=== PATIENT | male | born 1960 | race American Indian/Alaskan Native ===

== ENCOUNTER 2020-11-20 21:14 | Emergency (ER) | payer SELFPAY ==
--- NOTE | 2020-11-20 23:02 | Emergency Department Report ---
ED Shortness of Breath HPI - General Chief Complaint: Dyspnea/Respdistress Stated Complaint: SHORTNESS OF BREATH AND RIGHT SIDE NUMBNESS Time Seen by Provider: 11/20/20 22:57 Source: patient Mode of arrival: Ambulatory Limitations: No Limitations - History of Present Illness Initial Comments: Patient is a 60-year-old male who presents emergency room complaints of shortness of breath and right arm pain. Patient states his arm. Started approximately 4 days ago. Patient states the pain is worsening. Patient states the pain is better with rest and worse with movement and palpation. Patient states his shortness of breath has been going on for 6 months. Patient states that shortness of breath becoming more frequent and worsening. Patient states shortness of breath better with rest and worse with exertion. Patient denies recent travel. Patient denies recent international travel. Patient denies exposure to the novel coronavirus. Patient denies sick contacts. Patient denies fever and chills. Patient denies cough. Patient denies diarr hea. Patient denies coming in contact with anybody with symptoms of the novel coronavirus. Patient states he is not vaccinated gets COVID-19. Patient denies past medical history. MD Complaint: shortness of breath -: Gradual, month(s) Severity: mild Consistency: constant Improves With: rest Worsens With: exertion Treatments Prior to Arrival: none - Related Data Home Oxygen Therapy: No Allergies Allergy/AdvReac Type Severity Reaction Status Date / Time No Known Allergies Allergy Verified 11/20/20 21:22 ED Review of Systems ROS: Stated complaint: SHORTNESS OF BREATH AND RIGHT SIDE NUMBNESS Other details as noted in HPI Constitutional: denies: chills, fever Eyes: denies: eye pain, eye discharge, vision change ENT: denies: ear pain, throat pain Respiratory: see HPI, shortness of breath. denies: cough, wheezing Cardiovascular: denies: chest pain, palpitations Endocrine: no symptoms reported Gastrointestinal: denies: abdominal pain, nausea, diarrhea Genitourinary: denies: urgency, dysuria Musculoskeletal: denies: back pain, joint swelling, arthralgia Skin: denies: rash, lesions Neurological: denies: headache, weakness, paresthesias Psychiatric: denies: anxiety, depression Hematological/Lymphatic: denies: easy bleeding, easy bruising ED Past Medical Hx - Past Medical History Previous Medical History?: No - Surgical History Past Surgical History?: No - Family History Family history: no significant - Social History Smoking Status: Never Smoker Substance Use Type: None ED Physical Exam - General Limitations: No Limitations General appearance: alert, in no apparent distress - Head Head exam: Present: atraumatic, normocephalic - Eye Eye exam: Present: normal appearance - ENT ENT exam: Present: mucous membranes moist - Neck Neck exam: Present: normal inspection - Respiratory Respiratory exam: Present: normal lung sounds bilaterally. Absent: respiratory distress, wheezes, rales, rhonchi, stridor, chest wall tenderness, decreased breath sounds - Cardiovascular Cardiovascular Exam: Present: regular rate, normal rhythm. Absent: systolic murmur, diastolic murmur, rubs, gallop - GI/Abdominal GI/Abdominal exam: Present: soft, normal bowel sounds. Absent: distended, tenderness, guarding - Rectal Rectal exam: Present: deferred - Extremities Exam Extremities exam: Present: normal inspection - Back Exam Back exam: Present: normal inspection - Neurological Exam Neurological exam: Present: alert, oriented X3 - Psychiatric Psychiatric exam: Present: normal affect, normal mood - Skin Skin exam: Present: warm, dry, intact, normal color. Absent: rash ED Course Vital Signs 11/20/20 11/20/20 11/20/20 21:19 22:00 23:14 Temperature 99.5 F 98.2 F Pulse Rate 104 H 58 L Respiratory 18 18 Rate Blood Pressure 165/110 Blood Pressure 164/112 [Right] O2 Sat by Pulse 99 98 94 Oximetry 11/20/20 23:27 Temperature 98.0 F Pulse Rate 52 L Respiratory 18 Rate Blood Pressure Blood Pressure 145/87 [Right] O2 Sat by Pulse 98 Oximetry - Reevaluation(s) Reevaluation #1: I discussed all results and clinical findings with patient. I discussed plan of care with patient. Patient agrees with plan of care. Patient is stable for discharge. Patient will be discharged home. Patient given discharge instructions. Patient voiced understanding of discharge instructions. 11/21/20 00:44 ED Medical Decision Making - Lab Data Result diagrams: 11/20/20 23:19 11/20/20 23:19 - EKG Data -: EKG Interpreted by Me EKG shows normal: sinus rhythm, axis, intervals, QRS complexes, ST-T waves Rate: normal - Radiology Data Radiology results: report reviewed, image reviewed interpreted by me: Chest x-ray: No pneumonia, no pneumothorax, no foreign body, no osseous findings, no acute findings Fluoro Time In Minutes: CHEST 2 VIEWS INDICATION / CLINICAL INFORMATION: sob. COMPARISON: None available. FINDINGS: SUPPORT DEVICES: None. HEART / MEDIASTINUM: Cardiomegaly LUNGS / PLEURA: No significant pulmonary or pleural abnormality. No pneumothorax. ADDITIONAL FINDINGS: No significant additional findings. IMPRESSION: 1. Cardiomegaly without CHF - Medical Decision Making Patient is a 60-year-old male who presents emergency room for right arm pain and shortness of breath. Patient short of breath but not for many months. Patient's arm pain going on for 3 days. Patient on pain is consistent with a right arm sprain. Patient had a chest x-ray done and was negative for acute findings. Patient had labs done which were essentially unremarkable. Patient has a history of hypertension and lately controlled by his primary care. Patient is stable for discharge. Patient not require further emergency medical services. Patient not require inpatient service. Patient is stable for discharge. Patient discharged home I discussed all results and clinical findings with patient. I discussed plan of care with patient. Patient agrees with plan of care. Patient is stable for discharge. Patient will be discharged home. Patient given discharge instructions. Patient voiced understanding of discharge instructions. - Differential Diagnosis Shortness of breath, arm sprain, hypertension, CHF, Critical care attestation.: If time is entered above; I have spent that time in minutes in the direct care of this critically ill patient, excluding procedure time. ED Disposition Clinical Impression: Shortness of breath, Right arm pain, Cardiomegaly Hypertension Qualifiers: Hypertension type: primary hypertension Qualified Code(s): I10 - Essential (primary) hypertension Sprain of right upper arm Qualifiers: Encounter type: initial encounter Qualified Code(s): S53.401A - Unspecified sprain of right elbow, initial encounter Disposition: HOME / SELF CARE / HOMELESS Is pt being admited?: No Does the pt Need Aspirin: No Condition: Stable Instructions: Shortness of Breath, Adult, [id number], Elbow Sprain, Hypertension, Adult, [id number], Preventing Hypertension, Managing Your Hypertension, Hypertension, Adult, Hypertension (ED) Additional Instructions: Patient to follow-up with primary care in 2 to 3 days. Patient to follow-up with cardiology and orthopedist in 2 to 3 days. Patient to rest. Patient to increase water. Patient to avoid strenuous exercise or heavy lifting until cleared by cardiology and orthopedist. Patient to take Tylenol as needed for pain. Patient to monitor blood pressure at home. Patient to keep a blood pressure log. Patient to call blood pressure log to follow-up appointments. Patient to return to the ER if condition worsens, changes or new symptoms arise. Patient taking aspirin 81 mg daily. Referrals: CONRADO BACA MD [Staff Physician] - 2-3 Days TELLO BROWN MD [Staff Physician] - 2-3 Days COLE GUILLEN MD [Staff Physician] - 2-3 Days Time of Disposition: 00:48
[2020-11-20 23:28] VITALS: BP 145/87
--- NOTE | 2020-11-20 23:33 | XRay Report ---
CHEST 2 VIEWS INDICATION / CLINICAL INFORMATION: sob. COMPARISON: None available. FINDINGS: SUPPORT DEVICES: None. HEART / MEDIASTINUM: Cardiomegaly LUNGS / PLEURA: No significant pulmonary or pleural abnormality. No pneumothorax. ADDITIONAL FINDINGS: No significant additional findings. IMPRESSION: 1. Cardiomegaly without CHF Signer Name: Jimmy Abdi MD Signed: 11/20/2020 11:29 PM Workstation Name: [id number]
[2020-11-20 23:48] LABS: Hematocrit 40.7 % (35.5-45.6); Hemoglobin 13.5 gm/dl (11.8-15.2); Mean Corpuscular HGB Conc 33 % (32-34); Mean Corpuscular Volume 90 fl (84-94); Platelet Count 248 K/mm3 (140-440); Red Blood Count 4.53 M/mm3 (3.65-5.03); Red Cell Distribution Width 13.4 % (13.2-15.2)
[2020-11-21 00:06] LABS: Alanine Aminotransferase 27 units/L (7-56); Albumin 4.8 g/dL (3.9-5); BUN/Creatinine Ratio 12; Blood Urea Nitrogen 18 mg/dL (9-20); Calcium 9.7 mg/dL (8.4-10.2); Hemolysis Index 4
[2020-11-21 01:49] LABS: Total Cells Counted 100
[2020-11-21 01:50] LABS: Band Neutrophils # (Manual) 0.1 K/mm3; Platelet Estimate Consistent w Auto; RBC Morphology Normal
--- NOTE | 2020-11-27 14:32 | Electrocardiograph Report ---
[facility] Test Date: 2020-11-20 Test Time: 22:12:02 Pat Name: ANNA OSEI Department: Room: Gender: M Business Analysis Consultant: : 1960 Requested By: FARNAZ DAWSON III Order Number: [id number] Reading MD: Mendy Nettles Measurements Intervals [place] Rate: 50 P: 63 GA: 177 QRS: 65 QRSD: 90 T: 43 QT: 434 QTc: 398 Interpretive Statements Sinus bradycardia No previous ECG available for comparison Electronically Signed On 11-27-2020 14:32:25 EDT by Mendy Nettles
== END 2020-11-21 01:00 | disposition home or self-care (01) ==
LOC: ED 21:14
DX: S53.491A Other sprain of right elbow, initial encounter (principal); I51.7 Cardiomegaly; Z79.899 Other long term (current) drug therapy; R06.02 Shortness of breath; X58.XXXA Exposure to other specified factors, initial encounter; Y93.89 Activity, other specified; Y92.89 Other specified places as the place of occurrence of the external cause; Y99.8 Other external cause status
CPT/HCPCS: 36415; 71046; 80053; 84484; 85007; 85025; 93005; 99284